=== PATIENT | female | born 1955 ===

== ENCOUNTER 2020-06-14 06:00 | Outpatient (RCR) | payer BC, SELFPAY | END 2020-07-14 23:59 | disposition home or self-care (01) | LOC: GPT 06:00 | PROVIDERS: Referring Provider Orthopaedic Surgery; Visit Provider Orthopaedic Surgery | DX: Z47.1 Aftercare following joint replacement surgery (principal); Z96.652 Presence of left artificial knee joint; M23.207 Derangement of unspecified meniscus due to old tear or injury, left knee | CPT/HCPCS: 97032; 97110; 97112; 97116; 97161; 97530 ==

== ENCOUNTER 2020-07-15 06:00 | Outpatient (RCR) | payer BC, SELFPAY | END 2020-08-13 23:59 | disposition home or self-care (01) | LOC: GPT 06:00 | PROVIDERS: Referring Provider Orthopaedic Surgery; Visit Provider Orthopaedic Surgery | DX: Z47.89 Encounter for other orthopedic aftercare (principal) | CPT/HCPCS: 97110 ==